=== PATIENT | female | born 2000 | race Caucasian/White ===

== ENCOUNTER 2022-06-28 00:38 | Emergency (ER) | payer OTHER ==
[~2022-06-28] VITALS: Ht 167.6 cm; Wt 88.0 kg
[2022-06-28 00:45] VITALS: BP 119/71
--- NOTE | 2022-06-28 00:53 | NUR ---
Patient lying in bed, A/Ox4, chest rise and fall symmetrical, no c/o ain or s/s of discomfort, patient on monitor.
[2022-06-28] MEDS ORDERED: ALBUTEROL SULFATE/IPRATROPIU 3 ML SOL IH ONE (01:00)
[2022-06-28] MEDS ORDERED: ACET-10509 PO (01:49)
[2022-06-28] MEDS ORDERED: PSEU120T23 PO (01:49)
[2022-06-28] MEDS ORDERED: TAM75 PO (01:49)
[2022-06-28] MEDS ORDERED: NAPR-54 PO (01:49)
[2022-06-28] MEDS ORDERED: ALBU0.0912 IH (01:54)
--- NOTE | 2022-06-28 01:55 | NUR ---
Patient lying in bed, alert, chest rise and fall symmetrical, no c/o ain or s/s of discomfort, mother at bedside.
[2022-06-28 02:14] VITALS: BP 109/56
--- NOTE | 2022-06-28 02:14 | NUR ---
Patient discharged with v/s stable. Written and verbal after care instructions given and explained. Patient alert, oriented and verbalized understanding of instructions. Ambulatory with steady gait. All questions addressed prior to discharge. ID band removed. Patient advised to follow up with PMD. Rx of LAUREL SOTOIFLU given.
== END 2022-06-28 02:14 | disposition home or self-care (01) ==
LOC: MED 00:38
DX: J11.1 Influenza due to unidentified influenza virus with other respiratory manifestations (principal); Z20.822 Contact with and (suspected) exposure to COVID-19; J45.909 Unspecified asthma, uncomplicated; F17.290 Nicotine dependence, other tobacco product, uncomplicated; Z79.899 Other long term (current) drug therapy
CPT/HCPCS: 71045; 87426; 87804; 94640; 99284; Q0092

== ENCOUNTER 2023-05-26 02:23 | Emergency (ER) | payer OTHER ==
[~2023-05-26] VITALS: Ht 167.6 cm; Wt 88.0 kg
[~2023-05-26 02:23] MED LIST: ACET-10509 PO; ALBU0.0912 IH; NAPR-54 PO; PSEU120T23 PO; TAM75 PO
[2023-05-26 02:35] VITALS: BP 116/61; PULSE 90; RESP 19; TEMP 97.7; O2SAT 98
[2023-05-26] MEDS ORDERED: PHEN1TAB55 PO (04:15)
[2023-05-26] MEDS ORDERED: IBUP-2213 PO (04:15)
[2023-05-26] MEDS ORDERED: BEN50 PO (04:15)
[2023-05-26] MEDS ORDERED: ACETAMINOPHEN EXTRA STRENGTH 500 MG TAB PO ONE (04:30)
[2023-05-26] MEDS ORDERED: KETOROLAC 30 MG/ML VIAL IM ONE (04:30)
[2023-05-26 04:45] VITALS: BP 116/61; PULSE 90; RESP 19; TEMP 97.7; O2SAT 98
== END 2023-05-26 04:45 | disposition home or self-care (01) ==
LOC: MED 02:23
DX: U07.1 COVID-19 (principal); R07.89 Other chest pain; L51.9 Erythema multiforme, unspecified; Z71.6 Tobacco abuse counseling; J45.909 Unspecified asthma, uncomplicated; F17.200 Nicotine dependence, unspecified, uncomplicated; Z79.899 Other long term (current) drug therapy; Z79.1 Long term (current) use of non-steroidal anti-inflammatories (NSAID)
CPT/HCPCS: 93005; 96372; 99283; J1885

== ENCOUNTER 2023-07-20 10:44 | Emergency (ER) | payer OTHER ==
[~2023-07-20] VITALS: Ht 167.6 cm; Wt 91.2 kg
[~2023-07-20 10:44] MED LIST changes: +BEN50 PO; +IBUP-2213 PO; +PHEN1TAB55 PO
[2023-07-20 11:05] VITALS: BP 103/61; PULSE 79; RESP 16; TEMP 97.9; O2SAT 97
[2023-07-20] MEDS ORDERED: NITROFURANTOIN 100 MG CAP PO SCH (11:55)
[2023-07-20] MEDS ORDERED: PHENAZOPYRIDINE 100 MG TAB PO ONE (11:55)
[2023-07-20] MEDS ORDERED: KETOROLAC 30 MG/ML VIAL IM ONE (11:55)
[2023-07-20] MEDS ORDERED: PYR100 PO (12:45)
[2023-07-20] MEDS ORDERED: NITR100C7 PO (12:45)
[2023-07-20] MEDS ORDERED: ACET-10509 PO (12:45)
[2023-07-20 12:50] VITALS: BP 103/61; PULSE 79; RESP 16; TEMP 97.9; O2SAT 97
== END 2023-07-20 12:50 | disposition home or self-care (01) ==
LOC: MED 10:44
DX: R30.0 Dysuria (principal); R35.0 Frequency of micturition; R10.30 Lower abdominal pain, unspecified; J45.909 Unspecified asthma, uncomplicated; Z98.890 Other specified postprocedural states; Z79.899 Other long term (current) drug therapy; Z79.1 Long term (current) use of non-steroidal anti-inflammatories (NSAID); Z79.2 Long term (current) use of antibiotics
CPT/HCPCS: 81002; 81025; 96372; 99283; J1885

== ENCOUNTER 2023-08-03 08:43 | Emergency (ER) | payer OTHER ==
[~2023-08-03] VITALS: Ht 167.6 cm; Wt 89.8 kg
[~2023-08-03 08:43] MED LIST changes: +NITR100C7 PO; +PYR100 PO
[2023-08-03 08:49] VITALS: BP 133/62; PULSE 75; RESP 18; TEMP 98.5; O2SAT 96
[2023-08-03 09:53] LABS: BASOPHILS # (AUTO) 0.1 K/uL (0.00-0.22); BASOPHILS % (AUTO) 0.7 % (0.0-2.0); EOSINOPHILS # (AUTO) 0.2 K/uL (0-0.4); EOSINOPHILS % (AUTO) 2.7 % (0.0-4.0); HEMATOCRIT 38.7 % (36-48); HEMOGLOBIN 13.5 g/dL (12.0-16.0); LYMPHOCYTES # (AUTO) 3.2 K/uL (2.5-16.5); LYMPHOCYTES % (AUTO) 42.5 % (20.5-51.1); MEAN CORPUSCULAR HEMOGLOBIN 30 pg (27-31); MEAN CORPUSCULAR HGB CONC 35 g/dL (33-37); MEAN CORPUSCULAR VOLUME 85.1 fL (80-94); MONOCYTES # (AUTO) 0.4 K/uL (0.8-1.0); MONOCYTES % (AUTO) 5.8 % (1.7-9.3); NEUTROPHILS # (AUTO) 3.6 K/uL (1.8-7.7); NEUTROPHILS % (AUTO) 48.3 % (42.2-75.2); PLATELET COUNT (AUTO) 285 K/uL (140-450); RED BLOOD CELL COUNT(AUTO) 4.55 MIL/uL (4.20-5.40); RED CELL DISTRIBUTION WIDTH 13.4 % (11.6-13.7); WHITE BLOOD COUNT (AUTO) 7.4 K/uL (4.8-10.8)
[2023-08-03 10:10] LABS: APPEARANCE,URINE CLEAR (CLEAR); BILIRUBIN,URINE NEGATIVE (NEGATIVE); BLOOD, URINE 3+ (NEGATIVE); COLOR,URINE YELLOW (YELLOW); LEUKOCYTE ESTERASE ,URINE NEGATIVE (NEGATIVE); NITRITE, URINE POSITIVE (NEGATIVE); PROTEIN,URINE TRACE (NEGATIVE); UGLUCOSE NEGATIVE (NEGATIVE); UROBILINOGEN,URINE 0.2 EU/dL (0.2 - 1)
[2023-08-03 10:19] LABS: ALBUMIN 3.6 g/dL (3.4-5.0); ANION GAP 12.8 (8-16); CALCIUM 8.8 mg/dL (8.5-10.1); CARBON DIOXIDE 25.9 mmol/L (21-32); CREATININE 0.8 mg/dL (0.6-1.3); POTASSIUM 3.7 mmol/L (3.5-5.1); TOTAL BILIRUBIN 0.3 mg/dL (0.0-1.0); TOTAL PROTEIN, SERUM 8.3 g/dL (6.4-8.2)
[2023-08-03 10:39] LABS: BACTERIA,URINE >30 (MANY) /HPF (None Seen); MUCUS,URINE None Seen /LPF (None Seen); RBC,URINE 20-50 /HPF (0-5); SQUAMOUS EPITHELIAL CELL,UR None Seen /LPF (0-3 (FEW)); TRICHOMONAS,URINE None Seen /HPF (None Seen); WBC,URINE 0-5 /HPF (0-5); WHITE BLOOD CELL CASTS,URINE None Seen /LPF (None Seen); YEAST,URINE None Seen /HPF (None Seen)
[2023-08-03] MEDS ORDERED: CEPH-588 PO (11:11)
[2023-08-03] MEDS ORDERED: ACET-10509 PO (11:18)
[2023-08-03 11:25] VITALS: BP 114/65; PULSE 71; RESP 16; TEMP 98; O2SAT 99
== END 2023-08-03 11:25 | disposition home or self-care (01) ==
LOC: MED 08:43
DX: N39.0 Urinary tract infection, site not specified (principal); J45.909 Unspecified asthma, uncomplicated; Z79.899 Other long term (current) drug therapy
CPT/HCPCS: 36415; 76705; 80053; 81001; 81025; 83690; 85025; 87086; 99284

== ENCOUNTER 2024-02-28 16:03 | Emergency (ER) | payer OTHER ==
[~2024-02-28] VITALS: Ht 167.6 cm; Wt 86.2 kg
[~2024-02-28 16:03] MED LIST changes: -ACET-10509 PO; +ACET500T99 PO; +CEPH-588 PO; +NAPR-337 PO; -NAPR-54 PO
[2024-02-28 16:07] VITALS: BP 114/65; PULSE 96; RESP 16; TEMP 98.1; O2SAT 95
[2024-02-28 16:33] VITALS: O2SAT 95
[2024-02-28] MEDS: ALBUTEROL SULFATE/IPRATROPIU 3 ML SOL IH ONE (16:45)
[2024-02-28 16:46] VITALS: PULSE 85; RESP 16; O2SAT 98
[2024-02-28 17:03] VITALS: BP 108/63; PULSE 85; RESP 16; TEMP 98.1; O2SAT 95
[2024-02-28] MEDS ORDERED: PRED20TA5 PO (17:32)
[2024-02-28] MEDS: predniSONE 20 MG TAB PO ONE (17:41)
== END 2024-02-28 17:46 | disposition home or self-care (01) ==
LOC: MED 16:03
DX: J45.901 Unspecified asthma with (acute) exacerbation (principal); Z79.899 Other long term (current) drug therapy
CPT/HCPCS: 93005; 94640; 99283; J7512